=== PATIENT | male | born 1950 | race Caucasian/White ===

== ENCOUNTER 2020-09-16 04:47 | Inpatient (IN) | payer OTHER ==
[~2020-09-16] VITALS: Ht 172.7 cm; Wt 83.5 kg
[2020-09-16] VITALS (7 sets, daily range): BP systolic 92–131; BP diastolic 58–86
--- NOTE | ~2020-09-16 | EMS ---
[facility] [address] [place] [address] EMS Patient Care Report Name: HAMIDA MALDONADO Room #: REG DAMIAN Escobar#: [id number] Admission: 09/16/20 Attend Phys: Discharge: Date of : 46 Report #: [id number] THIS REPORT FOR: //name// Report Transmitted: 09/16/2020 04:56 EMS Care Summary [place], [place]/[facility] Incident [id number] @ 09/16/2020 04:21 Incident Location [facility] [address] Patient HAMIDA MALDONADO Male, 69 Years 1950 Patient Address [facility] [address] [place] [address] Patient History Cancer, Unspecified,Diabetes,Hypertension (HTN),Type 2 Diabetes, Patient Allergies No known allergies, Patient Medications Metoprolol, Sildenafil, Lasix, Hydrochlorothiazide (Hctz), Chief Complaint NONE Disposition Transported No Lights/[place] Dispatch Reason Breathing Problem Transported To [facility] Narrative RESPONDED TO BREATHING PROBLEMS AT [facility] WITH T15 ALREADY ON SCENE. UPON ARRIVAL PT FOUND LAYING IN BED ALERT AND ORIENTED X2 AND WHEN ASKED IA STAFF ABOUT MENTAL STATUS BASELINE THEY REPORT "HE SEEMS CONFUSED MORE THAN NORMAL" [facility] [address] [place] [address] EMS Patient Care Report Name: HAMIDA MALDONADO Room #: REG DAMIAN Escobar#: [id number] Admission: 09/16/20 Attend Phys: Discharge: Date of : 46 Report #: [id number] AND "HE IS USUALLY ALERT AND ORIENTED X3". [facility] STAFF REPORT THEY BELIEVE PT MIGHT HAVE ASPIRATED BUT IT WAS NOT WITNESSED AND THEY HAVE BEEN HAVING DIFFICULTY WITH KEEPING HIS O2 SATS UP. PT WAS FOUND ON 4 LPM. PT TEAM LIFTED TO COT AND SEATBELTS APPLIED. PT HAS RATTLING WET COUGH AND SOUNDS LIKE POSSIBLE PNEUMONIA. PT VITALS OBTAINED. PT TRANSPORTED TO [facility] WITH NO CHANGES. PT TEAM LIFTED TO BED AND HANDRAILS UP. REPORT GIVEN TO NURSE. Initial Vitals @04:38P: 94,R: 20,SpO2: 84, @04:33P: 66,R: 19,BP: 114/66,Pain: 0/10,SpO2: 81, @04:38P: 98,R: 20,BP: 113/72,GCS: 14,SpO2: 90,Revised Trauma: 12, Assessments @04:32MENTAL:Confused,Person Oriented,Event Oriented,SKIN:Pale,HEENT:Head/Face: No Abnormalities,Neck/Airway: No Abnormalities,LUNG SOUNDS:General: No Abnormalities,Left Upper: No Abnormalities,Right Upper: No Abnormalities,Left Lower: No Abnormalities,Right Lower: No Abnormalities,ABDOMEN:General: No Abnormalities,Left Upper: No Abnormalities,Right Upper: No Abnormalities,Left Lower: No Abnormalities,Right Lower: No Abnormalities,PELVIS//GI:Incontinence,EXTREMITIES:Right Leg: Weakness,Right Arm: Weakness,Left Leg: Weakness,Left Arm: Weakness,PULSE:NEURO:No Abnormalities, Impression Pneumonia Procedures @04:32ALS AssessmentResponse: UnchangedSucceeded@04:33Oxygen FlowRate: 4 Device: Nasal Cannula (NC) Response: UnchangedSucceeded@PTAOxygen FlowRate: 4 Device: Nasal Cannula (NC) Response: UnchangedSucceeded Timeline EQUIPMENT SERVICE LEAD,Oxygen FlowRate: 4 Device: Nasal Cannula (NC) Response: UnchangedSucceeded, 04:20,Call Received 04:20,Dispatch Notified 04:21,Dispatched 04:23,En Route 04:29,On Scene 04:32,At Patient 04:32,ALS Assessment,Response: UnchangedSucceeded, 04:33,BP: 114/66 M,PULSE: 66,RR: 19 R,SPO2: 81 Ox,ETCO2: ,BG: ,PAIN: 0,GCS: , 04:33,Oxygen FlowRate: 4 Device: Nasal Cannula (NC) Response: UnchangedSucceeded, 04:38,BP: / M,PULSE: 94,RR: 20 R,SPO2: 84 Ox,ETCO2: ,BG: ,PAIN: ,GCS: , 04:38,BP: 113/72 M,PULSE: 98,RR: 20 R,SPO2: 90 Ox,ETCO2: ,BG: ,PAIN: ,GCS: 14, 04:39,Depart Scene [address] [place] [address] EMS Patient Care Report Name: ERICAHAMIDA C Room #: REG Luz#: [id number] Admission: 09/16/20 Attend Phys: Discharge: Date of : 46 Report #: [id number] 04:41,At Destination 04:53,Call Closed Disclaimer v1.1 Copyright 2020 [employer] This EMS Care Summary contains data elements from the applicable legal record (which may be displayed differently). It is designed to provide pertinent information for the following purposes: continuity of care, clinical quality, and state data reporting. The complete legal record is available to ED staff and administrators of the receiving hospital in [employer] Patient Tracker. All data is provided "as is."
[2020-09-16] MEDS ORDERED: GABAPENTIN250 MG/5 M PO (05:25)
[2020-09-16] MEDS ORDERED: FLOMAX0.4 MG PO (05:25)
[2020-09-16] MEDS ORDERED: 8 HOUR C500 MG PO (05:25)
[2020-09-16] MEDS ORDERED: LIDOCAINE 4% K1 EACH TOP (05:26)
[2020-09-16] MEDS ORDERED: NIZORAL A-D125 ML TOP (05:26)
[2020-09-16] MEDS ORDERED: LOPRESSOR50 MG PER TUBE (05:27)
[2020-09-16] MEDS ORDERED: ANTI-DIARRHEAL2 MG PER TUBE (05:27)
[2020-09-16] MEDS ORDERED: ROXICODONE5 M2 PER TUBE (05:28)
[2020-09-16] MEDS ORDERED: ROXICODONE5 MG PER TUBE (05:28)
[2020-09-16] MEDS ORDERED: PROTONIX 20 MG20 M1 PO (05:29)
[2020-09-16] MEDS ORDERED: PROTONIX40 M4 PER TUBE (05:30)
[2020-09-16] MEDS ORDERED: SACCHAROMYCES250 MG PER TUBE (05:31)
[2020-09-16] MEDS ORDERED: VITAMIN D310 MCG PER TUBE (05:32)
[2020-09-16] MEDS ORDERED: VITAMIN E400 UNI5 PER TUBE (05:32)
[2020-09-16] MEDS ORDERED: ONDANSETRON HCL4 M2 PER TUBE (05:33)
[2020-09-16 05:45] LABS: ABSOLUTE NEUTROPHILS 8.3 thou/uL (1.4-8.2); BASOPHILS 0.4 % (0.0-2.0); EOSINOPHILS 2.5 % (0.0-3.0); HEMATOCRIT 31.8 % (42.0-52.0); HEMOGLOBIN 10.6 gm/dL (14.0-18.0); LYMPHOCYTES 11.4 % (24.0-44.0); MCH 29.4 pg (26.0-34.0); MCHC 33.2 g/dL (28.0-37.0); MCV 88.6 fL (80.0-100.0); MONOCYTES 5.1 % (1.0-8.0); PLATELET COUNT 393 thou/uL (150-400); POLYS 80.6 % (36.0-66.0); RBC 3.59 mil/uL (4.50-6.00); RDW 17.7 % (10.5-14.5); WBC 10.2 thou/uL (4.0-11.0)
[2020-09-16 05:58] LABS: URINE BILIRUBIN NEGATIVE (Negative); URINE BLOOD NEGATIVE (Negative); URINE CLARITY CLEAR; URINE COLOR YELLOW; URINE GLUCOSE-RANDOM* NEGATIVE (Negative); URINE KETONES NEGATIVE (Negative); URINE LEUKOCYTES-REFLEX TRACE (Negative); URINE NITRITE-REFLEX NEGATIVE (Negative); URINE PROTEIN (DIPSTICK) NEGATIVE (Negative); URINE SPECIFIC GRAVITY 1.015 (1.005-1.035)
[2020-09-16 06:01] LABS: ANION GAP 8 mmol/L (7-16); BUN 25 mg/dL (7-18); CALCIUM 9.2 mg/dL (8.5-10.1); CHLORIDE 97 mmol/L (98-107); CO2 32 mmol/L (21-32); CREATININE 1.2 mg/dL (0.7-1.3); GLUCOSE 147 mg/dL (74-106); POTASSIUM 4.6 mmol/L (3.5-5.1); SODIUM 137 mmol/L (136-145)
[2020-09-16 06:04] LABS: APTT 28.5 Seconds (24.5-32.8); INR 1.03; PROTIME 11.2 Seconds (10.5-12.1)
[2020-09-16 06:04] LABS: BE(vivo) 3.3 mmol/L (-2 to +3); HCO3 26.9 mmol/L (22.0-26.0); PCO2 37.4 mmHg (35.0-45.0); PO2 107.1 mmHg (80.0-100.0); pH 7.475 (7.360-7.450); sO2 98.2 % (92.0-98.0)
[2020-09-16 06:12] LABS: ALBUMIN 2.3 g/dL (3.4-5.0); LIPASE 60 U/L (73-393); SGOT 18 U/L (15-37); SGPT 14 U/L (16-63); TOTAL BILIRUBIN 0.5 mg/dL (0.2-1.0); TOTAL PROTEIN 8.2 g/dL (6.4-8.2); TROPONIN-I <0.06 ng/mL (<0.06)
--- NOTE | 2020-09-16 07:28 | EKG ---
[address] [address] ELECTROCARDIOGRAM REPORT Name: DUNCAN MALDONADONEEL Landeros Room #: REG Luz#: [id number] Admission: 09/16/20 Attend Phys: Discharge: Date of : 46 Report #: [id number] [facility] ED Test Date: 2020-09-16 Test Time: 06:08:04 Pat Name: HAMIDA MALDONADO Department: Room: Gender: Cement Paver: nataly : 1950 Requested By: Dwaine Allison Order Number: [id number] MD: Keon Peres Measurements Intervals [place] Rate: 131 P: 49 VA: 139 QRS: 1 QRSD: 74 T: 42 QT: 293 QTc: 433 Interpretive Statements Sinus tachycardia No previous ECG available for comparison Electronically Signed On 09-16-2020 7:28:32 CDT by Keon Peres [email or web address] <ELECTRONICALLY SIGNED> By: Keon Peres MD, [facility] 09/16/20 0728 [id number] Keon Peres MD, FACC /EPI
[2020-09-16] MEDS ORDERED: ISOSOURCE 1.51000 ML (11:08)
[2020-09-16] MEDS ORDERED: MULTI VITAMIN1 EACH PER TUBE (11:14)
[2020-09-16] MEDS ORDERED: PRO-STAT AWC LI30 ML PER TUBE (11:15)
--- NOTE | 2020-09-16 12:26 | NUR ---
ADMISSION NOTE: PT TO UNIT WITH FAMILY. A&OX4. ON O2 VIA MASK, SATS WNL. PT HAS R BKA. DIABETIC. BG WNL. SUCTION AT BEDSIDE. PORT IS ACCESSED, REPORTED FROM ED ACCESSED AT NURSING FACILITY. DATE ON PORT BANDAGE IS 08/25/20. AREA UNDER BANDAGE NO S/S INFECTION.
--- NOTE | 2020-09-16 12:32 | NUR ---
PT COMPLAINS OF SOA. ASSISTED PT TO SIT HIGHER IN BED, OXYGEN SATS 100% VENTI MASK 15L. SMALL AMOUNTS OF GREEN PHLEGM COUGHED UP. PT NOSE DRY. WILL INFORM MD. PT STATES BREATHING IS EASIER AFTER COUGHING. SUCTION AT BEDSIDE.
--- NOTE | 2020-09-16 17:03 | NUR ---
THIS RN NOTIFIED DR GUEVARA PT REPORTS MEDICAL HISTORY OF DIABETES WELL PEG TUBE FEEDING
--- NOTE | 2020-09-16 18:37 | NUR ---
THIS RN PROVIDED RE-EDUCATION TO PT FOR YAUNKER SUCTION OF ORAL EXCRETIONS. PT ABLE TO VERBALIZE AND RETURN DEMONSTRATION WELL.
--- NOTE | 2020-09-16 18:39 | NUR ---
VASCULAR ACCESS NURSE ALERTED BY 3W STAFF TO CHANGE THE PATIENTS PORT NEEDLE THAT WAS FOUND TO BE DATED 08/22 BY THE PATIENTS PRIOR FACILITY. OLD NEEDLE REMOVED AND A NEW NEEDLE WAS PLACED PER HOSPITAL POLICY
[2020-09-17 03:53] VITALS: BP 139/71
[2020-09-17 07:16] VITALS: BP 134/70
--- NOTE | 2020-09-17 07:20 | NUR ---
Pt. slept fair during the night. He has been repositioned for comfort. Maintaining O2 sat up to 100% on ventimask 15L/50% Loose cough , he suctions his mouth using yankuer , yellow thick sputum in tubing. SCD on left leg , Right BKA. Bed alarm on.
[2020-09-17 11:11] VITALS: BP 126/64
--- NOTE | 2020-09-17 13:32 | NUR ---
INITIAL ASSESSMENT: Received consult. DELL reviewed chart and spoke with nursing and attending physician. Pt was admitted from [facility] due to acute respiratory failure/sepsis. Pt with hx esophageal cancer. Pt has peg tube in place. Pt with hx right BKA. Pt is requiring ventimask and is on IV abx and IV steroids. No weekend discharge planned. Pt met with pt and friend, Walter, at bedside yesterday afternoon. Pt is currently in the LTC unit at [facility]. Pt's sister and friend, Walter, are involved in his care. Plan is for pt to return to [facility] when medically stable. DELL faxed clinical info to [facility] for review. Contacted Christina and provided update. [facility] is able to accept pt back when medically stable. DELL is following to assist as needed with discharge planning. [facility]--
[2020-09-17 15:22] VITALS: BP 128/79
--- NOTE | 2020-09-17 17:50 | NUR ---
assumed care of pt at 0700. pt alert and oriented, pleasant, no acute distress. weaned to 2L NC. vitals stable. NPO. socializing with family at bedside. no events on telemetry. wcm.
[2020-09-17 19:29] VITALS: BP 130/67
[2020-09-18 07:14] VITALS: BP 156/78
[2020-09-18 07:22] LABS: HEMATOCRIT 25.8 % (42.0-52.0); MCH 29.4 pg (26.0-34.0); MCHC 32.8 g/dL (28.0-37.0); MCV 89.4 fL (80.0-100.0); RBC 2.88 mil/uL (4.50-6.00); RDW 17.4 % (10.5-14.5); WBC 7.4 thou/uL (4.0-11.0)
[2020-09-18 07:29] LABS: HEMOGLOBIN 8.5 gm/dL (14.0-18.0)
[2020-09-18 07:37] LABS: ALBUMIN 1.7 g/dL (3.4-5.0); CALCIUM 8.3 mg/dL (8.5-10.1); PHOSPHORUS 2.7 mg/dL (2.6-4.7); POTASSIUM 3.6 mmol/L (3.5-5.1)
--- NOTE | 2020-09-18 07:56 | NUR ---
Pt. has been repositioned for comfort. O2 at 2L/NC , no respiratory distress. C/O headache , TRAFFIC MANAGER notified and order received. By the time order verified pt. fell asleep , no further c/o headache since. Pt. would like to know when can he have something to drink and eat. Oral care given and day RN informed to obtain an order. C/O mild abdominal pain and worried that his cooney cath might not be working. Cooney has been draining but went ahead and irrigated using sterile technique. This am he's incontinent of large soft bm and verbalized relief of abdominal discomfort. Making some progress towards care plan goals.
[2020-09-18 11:20] VITALS: BP 154/76
[2020-09-18 15:48] VITALS: BP 149/77
--- NOTE | 2020-09-18 18:33 | NUR ---
ASSUMED PATIENT CARE AT 0700. A/O X4. VSS. START TF AT 40ML/HR. TITRATED TO 1L/NC. GREEN THICK SPUTUM. SLOWLY TOWARDS POC GOALS.
[2020-09-18 19:41] VITALS: BP 150/79
--- NOTE | 2020-09-19 02:55 | NUR ---
Pt. slept well during the night. Repositioned prn for comfort. Denies being in pain. O2 down to 1L/NC , no respiratory distress. Tolerating tube feeding well. Making some progress towards care plan goals.
[2020-09-19 05:05] VITALS: BP 168/88
[2020-09-19 07:42] VITALS: BP 141/79
--- NOTE | 2020-09-19 08:02 | NUR ---
admit pt admitted from ed to room 356 with intractable pain pain to bilateral lower legs groins, and chest pain. pt has multiple pe's and dvt's over past year. had cholecystectomy in 11/05 and developed dvt's after surgery, throughout yr pt had multiple episodes of clotting and a nstemi in 08/06. 09/06 had clot retrivals at opr has 3 surgical incisions. one to inner left calf that was stapled and draining serosanguinous fluid, right groin with wound vac in place, left groin pt had removed wound vac at home prior to coming to ed. remaining wound vac removed pictures taken and cleansed with ns xeroform and gauze applied. right thigh was a tape blister from wound vac drape picture and dressed completed. tele running sr. pt rating pain a 10 yells jumps and screams. reports pain to both groins lower legs and chest pain that she describes as burning needles. 4 mg morphine given ivp, oxycodone, gbapentin given for pain pt still rating pain a 9 on reassessment, but not yelling and jumping as much. oriented to room call light system and poc. pt refused am labs but reconsidered lab notified to come up and draw when able.
[2020-09-19 11:03] VITALS: BP 172/83
[2020-09-19 16:00] VITALS: BP 145/81
--- NOTE | 2020-09-19 18:31 | NUR ---
no distress noted. slowly towards poc goals.
[2020-09-19 19:51] VITALS: BP 136/72
--- NOTE | 2020-09-19 21:04 | NUR ---
PT ALERT AND ORIENTED X4. VSS AFEBRILE. UNLABORED ON RA. YAUNKER AT SIDE.C/O ABD PAIN FROM TRYING TO MOVE SELF UP IN BED. MORPHINE 2MG GIVEN IV. HE REFUSED TYLENOL. ENCOURAGED PT TO CALL STAFF FOR ASSISTANCE WITH MOBILITY. BED DOWN. CALL LIGHT IN REACH. BED ALARM ON. NO S/S DISTRESS PRESENTLY. RTF RESIDUAL WNL.
[2020-09-20 00:33] VITALS: BP 140/78
[2020-09-20 04:31] VITALS: BP 154/76
--- NOTE | 2020-09-20 06:01 | NUR ---
PT PROGRESSING SLOWLY TOWARDS D/C GOALS. VSS AFEBRILE. SATS 94-95% ON RA. PT C/O THAT HE FELT LIKE HIS ABDOMEN BECAME SORE AFTER HE TRIED TO PULL HIMSELF UP IN BED. G-TUBE APPEARS TO BE INTACT. FLUSHES WELL. VERY LITTLE RESIDUAL NOTED. MEDICATED WITH MORPHINE X3 AND TYLENOL X1. HE RATED HIS PAIN 4/10 THIS AM PRIOR TO MEDICATION. PAIN IS NOW DOWN TO 3/10. BED ALARM IS ON. EPOSITIONED PT Q 2 HRS LAST NIGHT.
[2020-09-20 07:23] VITALS: BP 138/75
[2020-09-20] MEDS ORDERED: AUGMENTIN600 MG/5 M PER TUBE (07:58)
--- NOTE | 2020-09-20 11:13 | NUR ---
assumed care of pt at 0700. pt stable for discharge. on room air. no significant residuals. plans to discharge back to [facility]. report called to receiving nurse. notified patient's sister maverick by phone regarding discharge information. anticipate transport b/t [phone]. [facility].
[2020-09-20 11:18] VITALS: BP 141/83
== END 2020-09-20 12:50 | DRG 871 ==
LOC: ER 04:47 → 3W 07:40 → EROBS 07:40 → 3W 08:29
PROVIDERS: Emergency Medicine; ADMIT Hospitalist; ATTEND Hospitalist
PROC: 0B917ZZ Drainage of Trachea, Via Natural or Artificial Opening (ICD-10-PCS; principal; 2020-09-16)
PROC: 5A09357 Assistance with Respiratory Ventilation, Less than 24 Consecutive Hours, Continuous Positive Airway Pressure (ICD-10-PCS; principal; 2020-09-16)
DX: A41.9 Sepsis, unspecified organism (principal); J69.0 Pneumonitis due to inhalation of food and vomit; J96.01 Acute respiratory failure with hypoxia; G93.40 Encephalopathy, unspecified; C15.9 Malignant neoplasm of esophagus, unspecified; E11.9 Type 2 diabetes mellitus without complications; Z20.822 Contact with and (suspected) exposure to COVID-19; Z66 Do not resuscitate; Z79.899 Other long term (current) drug therapy
CPT/HCPCS: 10879